=== PATIENT | male | born 1960 | race Hispanic/Latino ===

== ENCOUNTER 2016-09-19 16:00 | Emergency (ER) | payer OTHER ==
[2016-09-19 16:04] VITALS: BP 126/69; PULSE 68; RESP 18; TEMP 97.7; O2SAT 100
--- NOTE | 2016-09-19 17:57 | ED PDOC ---
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 denies: numbness/pain. admits to deformity of knee, swelling superior to knee. denies additional injuries Past Medical History Reviewed: Historical Data, Nursing Documentation, Vital Signs Vital Signs: Last Vital Signs Temp 97.7 F 09/19/16 16:02 Pulse 68 09/19/16 16:02 Resp 18 09/19/16 16:02 BP 126/69 09/19/16 16:02 Pulse Ox 100 09/19/16 16:02 - Medical History PMH: No Chronic Diseases - Family History Family History: States: No Known Family Hx - Home Medications Home Medications: Ambulatory Orders Medication Instructions Recorded No Known Home Med 09/19/16 - Allergies Allergies/Adverse Reactions: Allergies Allergy/AdvReac Type Severity Reaction Status Date / Time No Known Allergies Allergy Verified 09/19/16 16:02 Review of Systems ROS Statement: Except As Marked, All Systems Reviewed And Found Negative Musculoskeletal: Positive for: Leg Pain Physical Exam - Reviewed Nursing Documentation Reviewed: Yes Vital Signs Reviewed: Yes - Physical Exam Appears: Positive for: Well, Non-toxic, No Acute Distress Head Exam: Positive for: ATRAUMATIC, NORMAL INSPECTION, NORMOCEPHALIC Skin: Positive for: Normal Color, Warm, DRY Cardiovascular/Chest: Positive for: Regular Rate, Rhythm Respiratory: Positive for: CNT, Normal Breath Sounds Extremity: Positive for: Other (left knee: swelling to quadtriceps noted, no defomirty noted to knee, mildly tedner knee exam on palpations, FROM at knee, hip and ankle. no calf pain nodiscolocation ) Neurologic/Psych: Positive for: Alert, Oriented - ECG O2 Sat by Pulse Oximetry: 100 - Radiology X-Ray: Interpreted by Me (no fx noted to patella, however patella mildly displaced-? patella tendon injury) - Progress ED Course And Treament: pt given IC pack, motrin and will get XRAY Medical Decision Making Medical Decision Making: pt will f/u with an orthopedics, pt given motrin in ED pt will get knee immobilizer at this time no acute surgical repair is needed but strongly advised to elevate , ice and take motrin for pain control with f.u with orthopedic. Disposition - Clinical Impression Clinical Impression: Knee injury - Patient ED Disposition Is Patient to be Admitted: No Counseled Patient/Family Regarding: Studies Performed, Diagnosis, Need For Followup, Rx Given - Disposition Referrals: Bess Teran MD [Staff Provider] - Disposition: Routine/Home Disposition Time: 18:35 Condition: STABLE Instructions: Patella Tendon Repair (GEN), Knee Pain (ED), Knee Immobilizer (ED ) Forms: [facility] ED School/Work Excuse
--- NOTE | 2016-09-20 11:34 | RAD ---
PROCEDURE: Right Knee Radiographs. HISTORY: injury COMPARISON: None. FINDINGS: BONES: Normal. No fracture. JOINTS: Mild tricompartmental degenerative changes. JOINT EFFUSION: Small suprapatellar joint effusion. OTHER FINDINGS: None. IMPRESSION: Mild degenerative changes. No apparent fracture.
== END 2016-09-19 19:01 | disposition home or self-care (01) ==
LOC: H.ER 16:00 → UNDOADMOB 09-20 23:49 → H.EROBSV 09-20 23:49
DX: S89.92XA Unspecified injury of left lower leg, initial encounter (principal); W10.9XXA Fall (on) (from) unspecified stairs and steps, initial encounter; Y93.9 Activity, unspecified